=== PATIENT | female | born 1965 | race Two or more races ===

== ENCOUNTER 2019-09-15 09:03 | Inpatient (IN) | payer MEDICAID, OTHER ==
[~2019-09-15] VITALS: Ht 162.6 cm; Wt 89.8 kg
[2019-09-15] MEDS ORDERED: SODIUM CHLORIDE 0.9% 1,000 ML IV ONE ×2 (09:42)
[2019-09-15 09:45] LABS: Urine Bacteria NONE SEEN /hpf (None Seen); Urine Blood 1+ /uL (Negative); Urine Specific Gravity 1.019 (1.001-1.035); Urine WBC 9 /hpf (0 - 5)
[2019-09-15] MEDS ORDERED: cefTRIAXone 1GM/50ML D5W 50 ML IV ONE (09:45)
[2019-09-15 09:46] LABS: Basophils # (auto) 0 10 ^3/uL (0-0.2); Basophils % (auto) 0.3 % (0.0-2.0); Eosinophils # (auto) 0 10 ^3/uL (0-0.8); Eosinophils % (auto) 0.1 % (0.0-7.0); Hematocrit 43.5 % (36.0-46.0); Hemoglobin 14.7 g/dL (12.2-16.2); Lymphocytes # (auto) 0.9 10 ^3/uL (0.4-5.4); Lymphocytes % (auto) 9.6 % (10.0-50.0); Mean Corpuscular Hemoglobin 29.7 pg (28.0-32.0); Mean Corpuscular Hgb Conc. 33.7 g/dL (32.0-36.0); Mean Corpuscular Volume 88.2 fL (80.0-100.0); Monocytes # (auto) 0.7 10 ^3/uL (0-1.3); Monocytes % (auto) 7.2 % (0.0-12.0); Neutrophils # (auto) 7.9 10 ^3/uL (1.6-8.6); Neutrophils % (auto) 82.8 % (37.0-80.0); Nucleated Red Blood Cells % 0.1 %; Platelet Count (auto) 200 10^3/uL (140-450); Red Blood Cells 4.93 10^6/uL (4.0-5.20); Red Cell Distribution Width 12.9 % (11.8-14.3); White Blood Cell 9.5 10^3/uL (4.4-10.8)
[2019-09-15] MEDS ORDERED: KETOROLAC TROMETH 30 MG/ML 1ML VIAL IV ONE (10:00)
[2019-09-15 10:10] LABS: Calcium 7.7 mg/dL (8.5-10.1); Potassium 3.9 mmol/L (3.5-5.1)
[2019-09-15 10:14] LABS: BUN/Creatinine Ratio 16.7; Bilirubin, Total 0.5 mg/dL (0.2-1.0)
[2019-09-15 10:42] LABS: Alcohol, Urine < 3.0 mg/dL (0-10); Amphetamine Screen, Urine POSITIVE (NEGATIVE); Barbiturate Scree,Urine NEGATIVE (NEGATIVE); Benzodiazephine Screen, Urine NEGATIVE (NEGATIVE); Cannabinoid Screen, Urine NEGATIVE (NEGATIVE); Cocaine Screen, Urine NEGATIVE (NEGATIVE); Phencyclidine Screen, Urine NEGATIVE (NEGATIVE)
[2019-09-15] MEDS ORDERED: AMIODARONE HCL 150 MG in D5W 5% 100 ML IV ONE (10:45)
[2019-09-15] MEDS ORDERED: AMIODARONE 450mg/250ml AE 250 ML IV SCH ×2 (10:45→16:45)
[2019-09-15 10:50] LABS: Opiate Scree,Urine NEGATIVE (NEGATIVE)
[2019-09-15] MEDS ORDERED: AZITHROMYCIN 500MG/ 250ML 250 ML IV ONE ×2 (13:57→14:00)
[2019-09-15] MEDS: SODIUM CHLORIDE 0.9% 1,000 ML IV SCH (14:41)
[2019-09-15] MEDS ORDERED: MORPHINE SULF INJ 2 MG/ML SYRINGE 1ML IV PRN ×2 (14:45)
[2019-09-15] MEDS ORDERED: ACETAMINOPHEN 500 MG TAB PO PRN ×3 (14:45→19:30)
[2019-09-15] MEDS: FOLIC ACID 1 MG, MULTIPLE VITAMIN 10 ML, MAGNESIUM SULF SDV 50% 8 MEQ, THIAMINE INJ 100... INJ SCH ×5 (14:45)
[2019-09-15] MEDS ORDERED: ONDANSETRON HCL 4 MG/2 ML VIAL IV PRN (14:45)
[2019-09-15] MEDS ORDERED: NITROGLYCERIN 0.4 MG SL TAB SL PRN (14:45)
[2019-09-15] MEDS ORDERED: HYDROcodone-ACET 5/325MG TAB PO PRN (14:45)
[2019-09-15 14:52] VITALS: BP 119/62
[2019-09-15] MEDS: LORazepam 2MG/ML-1ML VIAL IV PRN (15:55)
--- NOTE | 2019-09-15 17:01 | NUR ---
Telemetry admit from ER PAIGEMARY ANN admitted to Telemetry unit after SBAR received. Patient oriented to RITA SAVAGE RN primary RN, [facility] unit, 218 room, bed B, and unit policies regarding patient care and visiting hours. Patient now on continuous telemetry monitoring, tele box # [id number] and telemetry reading on arrival to unit is SR . Patient placed on bedside oxygen, weighed by bedscale and encouraged to call if they need something. All questions and concerns addressed, patient verbalized understanding. Note:
[2019-09-15 17:05] VITALS: BP 128/67
[2019-09-15 17:20] VITALS: BP 128/67
[2019-09-15] MEDS ORDERED: ALBUTEROL SULF 2.5 MG/0.5ML(0.5%) NEB SOLN NEB SCH (18:00)
[2019-09-15] MEDS ORDERED: IPRATROPIUM BROM 0.5 MG/2.5ML INH SOL NEB SCH (18:00)
--- NOTE | 2019-09-15 18:58 | NUR ---
REASSESS TEMPERATURE 102.3
--- NOTE | 2019-09-15 19:10 | NUR ---
COMMUNICATION WITH [facility] CARA CORREA PATIENT TEMPERATURE, ORDERED COVID-19 TEST, ACETAMINOPHEN; ONE TIME DOSE OF 500MG, COOLING MEASURES. WILL ENDORSE TO NOC ALLI VERA.
[2019-09-15] MEDS ORDERED: ACETAMINOPHEN 500 MG TAB PO ONE (19:15)
--- NOTE | 2019-09-15 20:20 | NUR ---
Assumed care: Assumed care of patient moved to 245 A. Received report from Beulah CARSON. Patient brought to new room via wheel chair and tolerated well. No s/s of distress or pain noted. Bed is in lowest locked position with bed rails up x2 and call light is within reach of the patient. Instructed to call if they need something.
[2019-09-15 20:30] VITALS: BP 119/71
[2019-09-15 20:37] LABS: Magnesium 2.1 mg/dL (1.6-2.6)
[2019-09-15 20:48] LABS: CRP High Sensitivity 7.53 mg/dL (< 0.3)
[2019-09-15] MEDS ORDERED: ALBUTEROL SULF HFA 90MCG INH 200DOSE IN SCH (22:00)
--- NOTE | 2019-09-15 22:45 | NUR ---
Covid: Covid swab done and taken to Lab.
[2019-09-16] VITALS: BP 106/75
[2019-09-16] MEDS: SODIUM CHLORIDE 0.9% 1,000 ML IV SCH (02:52)
[2019-09-16 04:00] VITALS: BP 124/77
[2019-09-16 06:11] LABS: Basophils # (auto) 0 10 ^3/uL (0-0.2); Basophils % (auto) 0.2 % (0.0-2.0); Eosinophils # (auto) 0 10 ^3/uL (0-0.8); Eosinophils % (auto) 0.1 % (0.0-7.0); Hematocrit 42.1 % (36.0-46.0); Hemoglobin 14.3 g/dL (12.2-16.2); Lymphocytes # (auto) 1.5 10 ^3/uL (0.4-5.4); Lymphocytes % (auto) 11.2 % (10.0-50.0); Mean Corpuscular Hgb Conc. 33.9 g/dL (32.0-36.0); Mean Corpuscular Volume 88.5 fL (80.0-100.0); Monocytes # (auto) 0.9 10 ^3/uL (0-1.3); Monocytes % (auto) 6.9 % (0.0-12.0); Neutrophils # (auto) 10.8 10 ^3/uL (1.6-8.6); Neutrophils % (auto) 81.6 % (37.0-80.0); Nucleated Red Blood Cells % 0.1 %; Platelet Count (auto) 199 10^3/uL (140-450); Red Blood Cells 4.75 10^6/uL (4.0-5.20); Red Cell Distribution Width 13.3 % (11.8-14.3); White Blood Cell 13.2 10^3/uL (4.4-10.8)
--- NOTE | 2019-09-16 06:30 | NUR ---
IV: Failed to start new IV after 3 attempts. This RN tried twice and another RN tried once. Will notify day shift nurse.
[2019-09-16 07:35] LABS: Calcium 7.9 mg/dL (8.5-10.1); Potassium 4.1 mmol/L (3.5-5.1)
--- NOTE | 2019-09-16 07:35 | NUR ---
Opening Shift Note Assumed care of patient, awake and alert x4. No S/S of distress/SOB or pain reported at this time, currently on 2L via NC. Currently no IV access, Instructed on POC and to call for assist PRN, call light within reach, Isolation precautions bin place, will continue to monitor for changes Q1hr and PRN.
[2019-09-16 07:37] LABS: BUN/Creatinine Ratio 16.9
[2019-09-16 08:00] VITALS: BP 129/65
--- NOTE | 2019-09-16 09:30 | NUR ---
OXYGEN DESATURATION NOTED O2 ON MONITOR DROP TO LOW 80%, ASSESSED PT AND NOTED NC OFF, REAPPLIED AND PT EDUCATION PROVIDED ON NEED TO KEEP O2 APPLIED, O2 INITIALLY INCREASED TO 95%, RR 20, NO RESPIRATOR DISTRESS NOTED, CALL LIGHT WITHIN REACH, INSTRUCTED TO CALL FOR HELP, PT VERBALIZED UNDERSTANDING, CONT CARE
[2019-09-16] MEDS ORDERED: AZITHROMYCIN 500MG/ 250ML 250 ML IV SCH (10:00)
[2019-09-16] MEDS: cefTRIAXone 1GM/50ML D5W 50 ML IV SCH (10:57)
[2019-09-16] MEDS: ENOXAPARIN SOD 40 MG/0.4 ML SYRINGE SC SCH (10:58)
[2019-09-16] MEDS: FAMOTIDINE 20 MG TAB PO SCH (10:59)
[2019-09-16] MEDS: ASCORBIC ACID 1,000 MG TAB PO SCH (10:59)
[2019-09-16] MEDS: ZINC SULFATE 220mg CAP or TAB PO SCH (10:59)
[2019-09-16] MEDS: LORazepam 2MG/ML-1ML VIAL IV PRN (11:03)
[2019-09-16] MEDS: NICOTINE 21MG/24 HR TOPICAL PATCH TD SCH (11:03)
--- NOTE | 2019-09-16 11:49 | NUR ---
Est energy needs 7783-2903 kcal (15-20 kcal/kg BW 107kg) Est protein needs 86-96g (0.8-0.9g/kg BW 107kg) Will reassess prn Addendum: 09/16/19 at [address] Amended: Links added.
[2019-09-16 12:00] VITALS: BP 144/82
--- NOTE | 2019-09-16 12:36 | NUR ---
REPORT RECEIVED FROM HOUSTON CARSON. COVID TEST RESULTED. ISOLATION PRECAUTIONS IN PLACE.
[2019-09-16 13:00] VITALS: BP 110/60
[2019-09-16] MEDS: FOLIC ACID 1 MG, MULTIPLE VITAMIN 10 ML, MAGNESIUM SULF SDV 50% 8 MEQ, THIAMINE INJ 100... INJ SCH ×5 (13:03)
[2019-09-16] MEDS ORDERED: IPRATROPIUM-ALBUTEROL 20mCg/100mCg INHALER IN SCH (13:23)
[2019-09-16] MEDS ORDERED: PATIENTS OWN MEDICATION PO SCH (14:00)
[2019-09-16] MEDS: IPRATROPIUM-ALBUTEROL 20mCg/100mCg INHALER IN SCH ×2 (15:20→21:13)
--- NOTE | 2019-09-16 15:21 | NUR ---
MDI GIVEN WITH COMBIVENT 20-100 MCG. ONE PUFF GIVEN. PT ON 3L/MIN VIA NC, 94% O2 SATS, HR 84 BPM, RR20, BS ARE BILATERAL DIMINISHED. PT TOLERATED WELL. WILL CONTINUE TO MONITOR PT.
[2019-09-16] MEDS: CHOLECALCIFEROL (VITD3) 1,000UNIT=25mCg TAB PO SCH (16:02)
[2019-09-16 17:50] VITALS: BP 128/85
--- NOTE | 2019-09-16 19:20 | NUR ---
Opening Shift Note Assumed care of patient, awake and alert. No S/S of distress/SOB or pain. Safety measures in place bed in lowest position, side rails upx2, and call light within reach. Instructed on POC and to call for assist PRN, will continue to monitor for changes Q1hr and PRN.
[2019-09-16] MEDS: DOXYCYCLINE 100 MG TAB/CAP PO SCH (21:13)
--- NOTE | 2019-09-16 21:13 | NUR ---
Respiratory note: PT'S SCHEDULED MDI TX WAS GIVEN BY ALLI Levine AT 2112. HR 73 RR 18 SP02 96% ON 2L NASAL CANNULA.
[2019-09-17 02:00] VITALS: BP 119/69
[2019-09-17] MEDS: IPRATROPIUM-ALBUTEROL 20mCg/100mCg INHALER IN SCH ×2 (05:14→14:29)
--- NOTE | 2019-09-17 05:14 | NUR ---
Respiratory note: PT GIVEN 1 PUFF COMBIVENT VIE MDI WITH CHAMBER BY RN. SPO2 92% ON 3LNC, HR 71, RR 16, BS DIMINISHED BILATERALLY. NO ADVERSE EFFECTS NOTED. CHARTING COMPLETE FROM OUTSIDE OF ISO ROOM. WILL CONTINUE TO MONITOR PT.
[2019-09-17 05:33] VITALS: BP 123/67
--- NOTE | 2019-09-17 07:20 | NUR ---
OPENING NOTE ASSUME CARE OF PT. ALERT AND ORIENTED. NO S/S OF SOB/DISTRESS NOTED. BED SET TO LOWEST POSITION/LOCKED, BEDSIDE RAILS UP X2, CALL LIGHT WITHIN REACH. INSTRUCTED PATIENT TO CALL FOR ASSISTANCE. UPDATED ON POC. PT VERBALIZED UNDERSTANDING. WILL CONTINUE TO MONITOR Q1HR AND PRN.
[2019-09-17 09:00] VITALS: BP 120/81
[2019-09-17] MEDS: ENOXAPARIN SOD 40 MG/0.4 ML SYRINGE SC SCH (10:00)
[2019-09-17] MEDS: NICOTINE 21MG/24 HR TOPICAL PATCH TD SCH (10:00)
[2019-09-17] MEDS: cefTRIAXone 1GM/50ML D5W 50 ML IV SCH (10:17)
[2019-09-17] MEDS: FAMOTIDINE 20 MG TAB PO SCH (10:17)
[2019-09-17] MEDS: ZINC SULFATE 220mg CAP or TAB PO SCH (10:17)
[2019-09-17] MEDS: ASCORBIC ACID 1,000 MG TAB PO SCH (10:18)
[2019-09-17] MEDS: DOXYCYCLINE 100 MG TAB/CAP PO SCH (10:18)
[2019-09-17] MEDS: CHOLECALCIFEROL (VITD3) 1,000UNIT=25mCg TAB PO SCH (10:18)
[2019-09-17] MEDS ORDERED: IPRAAER6 IN (11:19)
[2019-09-17] MEDS ORDERED: ASCO10003 PO (11:19)
[2019-09-17] MEDS ORDERED: DOX100T PO (11:19)
[2019-09-17] MEDS ORDERED: CHOL1000 PO (11:19)
[2019-09-17] MEDS ORDERED: SULF400T11 PO (11:22)
[2019-09-17 13:01] VITALS: BP 114/72
--- NOTE | 2019-09-17 14:29 | NUR ---
Respiratory note: PT GIVEN 1 PUFF COMBIVENT VIE MDI WITH CHAMBER BY RN. SPO2 97% ON 3LNC, HR 82, RR 18, BS DIMINISHED BILATERALLY. NO ADVERSE EFFECTS NOTED. CHARTING COMPLETE FROM OUTSIDE OF ISO ROOM. WILL CONTINUE TO MONITOR PT.
[2019-09-17 15:30] VITALS: BP 114/72
--- NOTE | 2019-09-17 17:09 | NUR ---
Discharge instructions given as ordered. Encourage to follow up with PMD as instructed. All questions and concerns addressed. Patient verbalized understanding. IV removed with catheter intact, pressure dressing applied. Telemetry unit returned to ICU. Patient taken to vehicle via wheelchair with all personal belongings, accompanied by staff and family member. No distress noted at time of departure.
== END 2019-09-17 16:38 | disposition home or self-care (01) | DRG 137 ==
LOC: ER 09:03 → EDBD 09:03 → TELE 09:04 → TELE-CENTR 17:12 → TELE-EAST 20:02
PROVIDERS: ADMIT Nurse Practitioner Acute Care; ATTEND Internal Medicine
DX: U07.1 COVID-19 (principal); J96.01 Acute respiratory failure with hypoxia; E86.0 Dehydration; J12.89 Other viral pneumonia; E83.51 Hypocalcemia; E87.1 Hypo-osmolality and hyponatremia; E66.9 Obesity, unspecified; J45.909 Unspecified asthma, uncomplicated; N30.00 Acute cystitis without hematuria; F17.210 Nicotine dependence, cigarettes, uncomplicated; F19.10 Other psychoactive substance abuse, uncomplicated; Z87.440 Personal history of urinary (tract) infections; Z71.89 Other specified counseling; Z68.41 Body mass index [BMI] 40.0-44.9, adult
CPT/HCPCS: 36415; 71045; 80048; 80053; 80307; 81001; 82728; 83615; 83735; 83880; 84484; 85025; 85379; 86141; 87040; 87086; 93005; 94640; G0378; J0696; J1885; J7060